=== PATIENT | male | born 1955 | race Caucasian/White ===

== ENCOUNTER 2016-09-11 05:08 | Day surgery (SDC) | payer BC ==
[2016-08-31 14:56] VITALS: BMI 28.0
--- NOTE | 2016-08-31 15:19 | PAT Medication Instructions ---
Service Date Aug 31, 2016. Current Home Medication List Aspirin (Aspirin Chewable), 81 MG PO QPM Atorvastatin (Lipitor), 20 MG PO HS Fish Oil ([place]-3), 2 CAP PO BID Glyburide (Diabeta), 2.5 MG PO HS Glyburide (Micronase), 5 MG PO QAM Metformin Hcl (Glucophage), 1,000 MG PO BID Multivitamin (Multivitamin), 1 TAB PO QAM Medication Instructions For Your Scheduled Surgery - Hold the following as of 09/01/16: Fish Oil ([place]-3), 2 CAP PO BID - Hold the following medications 10 days prior to surgery per surgeon's instructions: Aspirin (Aspirin Chewable), 81 MG PO QPM - Hold the following medications 48 hours prior to surgery: Metformin Hcl (Glucophage), 1,000 MG PO BID - Hold the following medications the morning of surgery: Glyburide (Micronase), 5 MG PO QAM Multivitamin (Multivitamin), 1 TAB PO QAM - Take the following medications as scheduled the night before surgery: Glyburide (Diabeta), 2.5 MG PO HS Atorvastatin (Lipitor), 20 MG PO HS Nothing to eat or drink after midnight If you have any questions please call us at [phone] or [phone] or [phone]
--- NOTE | 2016-08-31 15:46 | DIAGNOSTIC IMAGING REPORT ---
CHEST PREADMISSION(PA/LAT) CLINICAL HISTORY: Preoperative evaluation. COMPARISON STUDY: Chest radiograph May 21, 2007. FINDINGS: Lung volumes are normal. There is no consolidation to suggest pneumonia. Pulmonary vascularity is normal. Cardiac size is normal. Mediastinal contours are normal. There is no change in appearance of the chest. No pneumothorax or pleural effusion is identified. IMPRESSION: No acute cardiopulmonary findings. Electronically signed by: Boris London M.D. 08/31/2016 3:45 PM Dictated Date/Time: 08/31/2016 3:44 PM
[2016-08-31 16:23] LABS: BASO % 0.7 %; BASO ABS # 0.05 K/uL (0-0.2); COMPLETE YES; EOS % 7.2 %; HEMATOCRIT 43.4 % (42-52); IG% 0.7 %; LYMPH % 28.5 %; LYMPH ABS # 1.95 K/uL (1.2-3.4); MEAN CELL VOLUME 87.7 fL (80-100); MEAN CORPUSCULAR HEMOGLOBIN 30.9 pg (25-34); MEAN CORPUSCULAR HGB CONC 35.3 g/dl (32-36); MEAN PLATELET VOLUME 10.9 fL (7.4-10.4); MONO % 8.9 %; PLATELET COUNT 176 K/uL (130-400); RED BLOOD COUNT 4.95 M/uL (4.7-6.1); WHITE BLOOD COUNT 6.85 K/uL (4.8-10.8)
[2016-08-31 16:26] LABS: URINE APPEARANCE CLEAR (CLEAR); URINE BILIRUBIN NEG (NEG); URINE COLOR YELLOW; URINE NITRITE NEG (NEG); URINE PH 7.5 (4.5-7.5); URINE SPECIFIC GRAVITY 1.015 (1.000-1.030); UROBILINOGEN NEG (NEG)
[2016-08-31 16:31] LABS: MANUAL MICROSCOPIC REQUIRED? NO; REVIEW REQ? NO
[2016-08-31 16:37] LABS: BUN/CREATININE RATIO 16.3 (10-20); CALCIUM 9.3 mg/dl (8.5-10.1); CREATININE 1.1 mg/dl (0.60-1.40); POTASSIUM 4.2 mmol/L (3.5-5.1)
[~2016-09-11] VITALS: Ht 172.7 cm; Wt 85.1 kg
[~2016-09-11 05:08] MED LIST: ASPCH81X PO; ATOR-22 PO; GLYB2.5T7 PO; GLYB5TAB8 PO; METF1000 PO; MULT-506 PO; OMEG10007 PO
[2016-09-11 05:30] VITALS: BP 132/81; PULSE 70; TEMP 36.5; O2SAT 98; Ht 172.7 cm; Wt 85.1 kg
[2016-09-11] MEDS ORDERED: CIPROFLOXACIN / D5W 400 MG IV SCH (06:00)
[2016-09-11] MEDS ORDERED: LACTATED RINGER'S 1000ML 1,000 ML IV SCH (06:00)
--- NOTE | 2016-09-11 06:56 | History & Physical Bridge Note ---
H&P Re-Evaluation Bridge Note: I have examined the patient, reviewed the History & Physical and in the interval since the performance of the History & Physical I have noted the following changes of clinical significance: No changes noted
[2016-09-11] MEDS ORDERED: FENTANYL CITRATE INJ 50 MCG/1 ML 2 ML VIAL ONE ×2 (07:28→07:42)
[2016-09-11] MEDS ORDERED: DEXAMETHASONE SOD INJ 4 MG/ML VIAL ONE (07:35)
[2016-09-11] MEDS ORDERED: ONDANSETRON INJ 2 MG/ML 2 ML VIAL ONE (07:35)
[2016-09-11] MEDS ORDERED: PHENYLEPHRINE 100MCG/ML 5ML SYR ONE (07:35)
[2016-09-11] MEDS ORDERED: PROPOFOL IV EMULSION 10 MG/ML 20 ML VIAL IV ONE (07:35)
[2016-09-11] MEDS ORDERED: LIDOCAINE HCL 2% 2 ML VIAL (20MG/ML) ONE (07:35)
[2016-09-11] MEDS ORDERED: MIDAZOLAM HCL 1 MG/ML 2ML VIAL ONE (07:41)
[2016-09-11] MEDS ORDERED: BUPIVACAINE 0.5 % 5 MG/1 ML MPF 30ML VIAL ONE (07:43)
--- NOTE | 2016-09-11 08:12 | [facility] Post Operative Brief Note ---
Immediate Operative Summary Operative Date Sep 11, 2016. Pre-Operative Diagnosis Right Hydrocele Post-Operative Diagnosis Right Hydrocele Procedure(s) Performed Right Hydrocelectomy Surgeon Dr. Evan Beckwith Terrazzo Mechanic Surgeon(s) None Estimated Blood Loss 5ml Findings large right hydrocele Specimens None per surgeon Dr. vEan Beckwith Drains adolph Anesthesia gen Complication(s) None Disposition Recovery Room / PACU
[2016-09-11] MEDS ORDERED: CIPR1TAB10 PO (08:13)
[2016-09-11] MEDS ORDERED: OXYC-57 PO (08:13)
[2016-09-11] MEDS ORDERED: ONDANSETRON INJ 2 MG/ML 2 ML VIAL IV PRN (08:15)
[2016-09-11] MEDS ORDERED: ATROPINE SULFATE 0.1 MG/ML 5ML SYR IV PRN (08:15)
[2016-09-11] MEDS ORDERED: MEPERIDINE HCL 25 MG/ML CARP IV PRN (08:15)
[2016-09-11] MEDS ORDERED: FENTANYL CITRATE INJ 50 MCG/1 ML 2 ML VIAL IV PRN (08:15)
[2016-09-11] MEDS ORDERED: HYDROmorphone INJ 1 MG/ML SYR IV PRN (08:15)
[2016-09-11] MEDS ORDERED: EpHEDrine SULFATE INJ 50 MG/ML AMP IV PRN (08:15)
[2016-09-11] MEDS ORDERED: LABETALOL HCL IV 5 MG/ML 20ML IV PRN (08:15)
--- NOTE | 2016-09-11 08:15 | Discharge Instructions ---
Discharge Instructions Date of Service Sep 11, 2016. Visit Reason for Visit: Right Spermatocele/Hydrocele Discharge Discharge Diagnosis / Problem: right hydrocele Discharge Goals Goal(s): Therapeutic intervention Activity Recommendations Activity Limitations: per Instructions/Follow-up section Lifting Limitations: no more than 10 pounds Exercise/Sports Limitations: none May Resume Sexual Activity: after two weeks Shower/Bathe: tomorrow Anesthesia . Post Anesthesia Instructions: If you have had General Anesthesia or IV Sedation: * Do not drive today. * Resume driving when surgeon permits. * Do not make important decisions or sign legal documents today. * Call surgeon for: 1. Temperature elevations greater than 101 degrees F. 2. Uncontrollable pain. 3. Excessive bleeding. 4. Persistent nausea and vomiting. 5. Medication intolerance (nausea, vomiting or rash). * For nausea and vomiting use only clear liquids such as: tea, soda, bouillon until nausea subsides, then gradually increase diet as tolerated. * If you have any concerns or questions, call your surgeon's office. If physician is unavailable and it is an emergency, call 911 or go to the nearest emergency room. . Diet Recommendations Recommended Home Diet: resume previous diet Procedures Procedures Performed: Right Hydrocelectomy Pending Studies Studies pending at discharge: no Medical Emergencies . Who to Call and When: Medical Emergencies: If at any time you feel your situation is an emergency, please call 911 immediately. . Non-Emergent Contact Non-Emergency issues call your: Urologist Call Non-Emergent contact if: temperature is above 101.5 . . "Provider Documentation" section prepared by Evan Beckwith. . [place] Drug Monitoring Program Search Results: patient reviewed within database
[2016-09-11 09:05] VITALS: BP 113/74; PULSE 64; TEMP 36.5; O2SAT 96
[2016-09-11] MEDS: OXYCODONE/ACETAMINOPHEN 5-325 TAB PO PRN ×2 (09:29→10:01)
[2016-09-11 09:31] VITALS: BP 113/75; PULSE 74; O2SAT 98
[2016-09-11 10:01] VITALS: BP 108/75; PULSE 66; O2SAT 97
--- NOTE | 2016-09-11 10:01 | Anesthesiology Progress Note ---
Anesthesia Post Op Note Date & Time Sep 11, 2016 at 10:01 Vital Signs Pain Intensity: 6.0 Vital Signs Past 12 Hours Date Time Temp Pulse Resp B/P (MAP) Pulse Ox O2 Delivery O2 Flow Rate FiO2 09/11/16 09:31 74 18 113/75 98 Room Air 09/11/16 09:05 36.5 64 18 113/74 96 Room Air 09/11/16 08:50 36.6 66 18 122/80 95 Room Air 09/11/16 08:40 67 18 109/80 96 Room Air 09/11/16 08:30 70 18 111/81 100 Oxymask 10 09/11/16 08:20 36.3 75 14 121/84 100 Oxymask 10 09/11/16 08:11 36.3 75 14 110/73 99 Oxymask 10 09/11/16 05:30 36.5 70 18 132/81 (98) 98 Room Air Notes Mental Status: alert / awake / arousable, participated in evaluation Pt Amnestic to Procedure: Yes Nausea / Vomiting: adequately controlled Pain: adequately controlled Airway Patency, RR, SpO2: stable & adequate BP & HR: stable & adequate Hydration State: stable & adequate Anesthetic Complications: no major complications apparent
[2016-09-11 10:31] VITALS: BP 115/73; PULSE 49; TEMP 36.6; O2SAT 98
--- NOTE | 2016-09-11 13:21 | OPERATIVE REPORT ---
DATE OF OPERATION: 09/11/2016 PREOPERATIVE DIAGNOSIS: Right hydrocele. POSTOPERATIVE DIAGNOSIS: Same. PROCEDURE: Right hydrocelectomy. FINDINGS: The patient had a large right hydrocele. SURGEON: Dr. Evan Beckwith. ANESTHESIA: General. DRAINS: Quarter inch Horacio drain, right hemiscrotum. COMPLICATIONS: None. SPECIMENS: None. INDICATIONS: The patient is a 61-year-old white male who was seen in the office with a large right scrotal swelling, which was confirmed to be a hydrocele. It was bothersome enough that he wanted to repair. DESCRIPTION OF PROCEDURE: After the induction of an adequate general anesthetic and appropriate time-out, the patient's lower abdomen, scrotum and genitalia were scrubbed with Betadine scrub, prepped with Betadine paint and draped in a sterile fashion. Transverse incision was made in the right hemiscrotum being carried down through skin and subcutaneous tissues, the dartos layers down to the tunica vaginalis, which was then dissected free from the surrounding scrotal wall and then the entire hydrocele sac was extruded from the wound. A small puncture wound was made on the anterior surface. About 800 mL of fluid, straw colored drained from the hydrocele itself. The sac was then widely opened. Part of it was trimmed away. Any bleeding points were electrocoagulated. The sac was then folded behind the testicle and the cord lightly sutured in place with 2-0 Vicryl. The wound was then irrigated with sterile saline. Any bleeding points were electrocoagulated. A quarter-inch Horacio drain was placed in the right hemiscrotum, brought out through a separate stab wound and sutured to the skin with a 2-0 nylon. The testicle was then placed in its correct anatomic position in the right hemiscrotum. The incision was then closed in 2 layers. The dartos layer was closed with a running locked 2-0 Vicryl. Skin was closed with interrupted mattress of 3-0 Vicryl. The wound was then washed and dried. Xeroform gauze was applied. The incision was prior to this was infiltrated with 0.25% Marcaine for local anesthesia. Fluff gauze and a dry scrotal support were applied. All needle, sponge and instrument counts were correct at the end of the case. The patient tolerated the procedure well and went to the recovery room in stable condition. I attest to the content of the Intraoperative Record and any orders documented therein. Any exception s are noted below.
== END 2016-09-11 10:45 | disposition home or self-care (01) ==
LOC: C.ACU 05:08
PROVIDERS: ATTEND Urology
DX: N43.3 Hydrocele, unspecified (principal); E11.65 Type 2 diabetes mellitus with hyperglycemia; N40.0 Benign prostatic hyperplasia without lower urinary tract symptoms; E80.4 Gilbert syndrome; E78.00 Pure hypercholesterolemia, unspecified; Z79.82 Long term (current) use of aspirin; Z79.84 Long term (current) use of oral hypoglycemic drugs; Z79.899 Other long term (current) drug therapy

== ENCOUNTER 2017-03-13 18:56 | Emergency (ER) | payer BC, OTHER ==
[~2017-03-13] VITALS: Ht 172.7 cm; Wt 83.7 kg
[~2017-03-13 18:56] MED LIST changes: +CIPR1TAB10 PO; +OXYC-57 PO
[2017-03-13 19:03] VITALS: TEMP 36.7; Ht 172.7 cm; Wt 83.7 kg
[2017-03-13] MEDS ORDERED: SODIUM CHLORIDE 0.9% 1000ML 1,000 ML IV STA (19:40)
[2017-03-13] MEDS ORDERED: KETOROLAC TROMETHAMINE 30 MG/ML VIAL IV STA (19:40)
[2017-03-13] MEDS ORDERED: MoRPHine SULFATE 10 MG/ML CARP/VIAL IV STA (19:40)
[2017-03-13] MEDS ORDERED: ONDANSETRON INJ 2 MG/ML 2 ML VIAL IV STA (19:40)
[2017-03-13] MEDS ORDERED: TAMSULOSIN HCL 0.4 MG CAP PO ONE (19:45)
[2017-03-13 20:02] LABS: BASO % 0.1 %; BASO ABS # 0.01 K/uL (0-0.2); EOS % 0.2 %; EOS ABS # 0.03 K/uL (0-0.5); HEMATOCRIT 42.7 % (42-52); HEMOGLOBIN 15.8 g/dL (14.0-18.0); IG# 0.04 K/uL (0.00-0.02); LYMPH % 7.5 %; LYMPH ABS # 0.97 K/uL (1.2-3.4); MEAN CELL VOLUME 87.3 fL (80-100); MEAN CORPUSCULAR HEMOGLOBIN 32.3 pg (25-34); MEAN PLATELET VOLUME 10.5 fL (7.4-10.4); MONO % 5.4 %; MONO ABS # 0.69 K/uL (0.11-0.59); NEUT % 86.5 %; NEUT ABS # 11.14 K/uL (1.4-6.5); PLATELET COUNT 192 K/uL (130-400); RED CELL DISTRIBUTION WIDTH CV 12.6 % (11.5-14.5); RED CELL DISTRIBUTION WIDTH SD 40.4 fL (36.4-46.3); WHITE BLOOD COUNT 12.88 K/uL (4.8-10.8)
[2017-03-13 20:19] LABS: ALBUMIN 4.2 gm/dl (3.4-5.0); CALCIUM 9.7 mg/dl (8.5-10.1); CREATININE 1.24 mg/dl (0.60-1.40); POTASSIUM 3.9 mmol/L (3.5-5.1)
[2017-03-13 20:22] LABS: TOTAL PROTEIN 7.7 gm/dl (6.4-8.2)
[2017-03-13] MEDS ORDERED: MCR5 PO ×2 (20:28)
[2017-03-13] MEDS ORDERED: ASPI81TA28 PO (20:28)
--- NOTE | 2017-03-13 20:42 | DIAGNOSTIC IMAGING REPORT ---
CT OF THE ABDOMEN AND PELVIS WITHOUT CONTRAST, STONE PROTOCOL CLINICAL HISTORY: Left flank pain. COMPARISON STUDY: CT of the abdomen and pelvis November 03, 2011. TECHNIQUE: Helical axial images of the abdomen and pelvis were obtained without IV or oral contrast according to renal stone protocol. A dose lowering technique was utilized adhering to the principles of ALARA. FINDINGS: A 4 mm left ureterovesical junction calculus results in moderate left hydronephrosis with extensive perinephric infiltration. A few punctate calculi within the lower pole of the right kidney are noted. There are no right ureteral calculi. There are gallstones within the gallbladder without evidence for acute cholecystitis. Several bladder diverticula are noted. A 1.2 cm suspected right hepatic lobe cyst is unchanged since exam of November 03, 2011. Evaluation of the abdomen and pelvis is suboptimal on this unenhanced exam. Unenhanced images of the spleen, adrenal glands and pancreas are unremarkable. There is no biliary or pancreatic ductal dilatation. No suspicious osseous lesions are present. IMPRESSION: 1. 4 mm left ureterovesical junction calculus which results in moderate left hydroureteronephrosis with extensive perinephric infiltration. 2. Punctate right renal calculi. 3. Cholelithiasis. Electronically signed by: Boris London M.D. 03/13/2017 8:41 PM Dictated Date/Time: 03/13/2017 8:36 PM
[2017-03-13] MEDS ORDERED: ONDA4TAB10 SL (20:58)
[2017-03-13] MEDS ORDERED: OXYC1TAB3 PO (20:58)
[2017-03-13] MEDS ORDERED: TAMS0.4C38 PO (20:58)
[2017-03-13] MEDS ORDERED: ONDANSETRON HOME PACK 4MG OD TAB PO ONE (21:00)
[2017-03-13] MEDS ORDERED: OXYCODONE IR HOME PACK PO ONE (21:00)
--- NOTE | 2017-03-13 21:00 | EMERGENCY ROOM VISIT NOTE ---
History First contact with patient: 19:33 Chief Complaint: FLANK PAIN Stated Complaint: BACK AND LEFT SIDE ABDOMINAL PAIN History of Present Illness The patient is a 62 year old male who presents to the Emergency Room with complaints of left flank pain which started at 1:00 this afternoon. He states the pain started in his back and now radiates around to his abdomen. The patient admits to associated nausea but denies any vomiting. The patient denies any urinary symptoms of frequency, urgency, dysuria or hematuria. The patient denies any change in bowel habits. The patient denies any injury to his back. The patient does admit to having a kidney stone in 2011 which he passed on his own. He did not see a urologist at that time. Review of Systems 10 system review was performed and was negative unless stated otherwise history of present illness. Past Medical/Surgical History Kidney stone, diabetes, hyperlipidemia Social History Smoking Status: Never Smoker Alcohol Use: none Marital Status: Occupation Status: employed Current/Historical Medications Scheduled Aspirin (Aspirin Ec), 81 MG PO DAILY Atorvastatin (Lipitor), 20 MG PO HS Fish Oil ([place]-3), 2 CAP PO BID Glyburide (Glyburide), 2.5 MG PO HS Glyburide (Glyburide), 5 MG PO QAM Metformin Hcl (Glucophage), 1,000 MG PO BID Multivitamin (Multivitamin), 1 TAB PO QAM Physical Exam Vital Signs Date Time Temp Pulse Resp B/P (MAP) Pulse Ox O2 Delivery O2 Flow Rate FiO2 03/13/17 20:36 84 18 120/72 95 Room Air 03/13/17 19:03 36.7 78 18 170/98 99 Room Air Physical Exam GENERAL: 62-year-old white male appears uncomfortable secondary to pain. MENTAL Status: Alert and oriented 3. MOUTH: Mucosa is moist NECK: Supple, no lymphadenopathy noted. No carotid bruits noted. LUNGS: Clear auscultation without wheezes rales or rhonchi. CARDIAC: Regular rate and rhythm without murmur. Pulses is full and equal throughout. BACK: Left CVA tenderness noted. ABDOMEN: Positive bowel sounds all 4 quadrants. Soft, tenderness palpation in the left flank region otherwise nontender to palpation without organomegaly or masses. EXTREMITIES: No cyanosis or edema noted. Medical Decision & Procedures ER Provider Diagnostic Interpretation: Patient Name: ANITA PULLIAM Unit Number: [id number] Dictated: 03/13/172035 Transcribed: 03/13/172035 JA Printed Date/Time: [~ rep prt dt]/[~ rep prt tm] [~ rep ct labl] - [~ rep ct ivnm] [facility] [place] [address] Dictated: 03/13/172035 Transcribed: 03/13/172035 JA Printed Date/Time: [~ rep prt dt]/[~ rep prt tm] [~ rep ct labl] - [~ rep ct ivnm] CT OF THE ABDOMEN AND PELVIS WITHOUT CONTRAST, STONE PROTOCOL CLINICAL HISTORY: Left flank pain. COMPARISON STUDY: CT of the abdomen and pelvis November 03, 2011. TECHNIQUE: Helical axial images of the abdomen and pelvis were obtained without IV or oral contrast according to renal stone protocol. A dose lowering technique was utilized adhering to the principles of ALARA. FINDINGS: A 4 mm left ureterovesical junction calculus results in moderate left hydronephrosis with extensive perinephric infiltration. A few punctate calculi within the lower pole of the right kidney are noted. There are no right ureteral calculi. There are gallstones within the gallbladder without evidence for acute cholecystitis. Several bladder diverticula are noted. A 1.2 cm suspected right hepatic lobe cyst is unchanged since exam of November 03, 2011. Evaluation of the abdomen and pelvis is suboptimal on this unenhanced exam. Unenhanced images of the spleen, adrenal glands and pancreas are unremarkable. There is no biliary or pancreatic ductal dilatation. No suspicious osseous lesions are present. IMPRESSION: 1. 4 mm left ureterovesical junction calculus which results in moderate left hydroureteronephrosis with extensive perinephric infiltration. 2. Punctate right renal calculi. 3. Cholelithiasis. Electronically signed by: Boris London M.D. 03/13/2017 8:41 PM Dictated Date/Time: 03/13/2017 8:36 PM The status of this report is Signed. Draft = Not yet reviewed or approved by Radiologist. Signed = Reviewed and approved by Radiologist. <AttendingPhy></AttendingPhy> <FamilyPhy>Oliver Zaldivar M.D.</FamilyPhy> < PrimaryPhy>Oliver Zaldivar M.D.</PrimaryPhy> <UnitNumber>[id number]</UnitNumber > <VisitNumber>[id number]</VisitNumber> <PatientName>ANITA PULLIAM</ PatientName> <DateOfBirth>1955</DateOfBirth> <Location>[facility]</Location> < ServiceDate>03/13/17</ServiceDate> <MNE>ESINDI</MNE> <OrderingPhy>Katty Thorpe PA-C</OrderingPhy> <OrderingPhyMNE>f rep ord dr dos santos</OrderingPhyMNE> < DictatingPhyMNE>f rep dict dr dos santos</DictatingPhyMNE> <CCListMNE>f rep ct mne</ CCListMNE> <AdmittingPhyMNE>f pt admit dr dos santos</AdmittingPhyMNE> <AttendingPhyMNE >f pt attend dr dos santos</AttendingPhyMNE> <ConsultingPhyMNE>f pt consult dr dos santos</ConsultingPhyMNE> <FamilyPhyMNE>f pt fam dr dos santos</FamilyPhyMNE> <OtherPhyMNE>f pt other dr dos santos</OtherPhyMNE> < PrimaryPhyMNE>f pt prim care dr dos santos</PrimaryPhyMNE> <ReferringPhyMNE>f pt referring dr dos santos</ReferringPhyMNE> Laboratory Results 03/13/17 19:44 Red Blood Count 4.89, Mean Corpuscular Volume 87.3, Mean Corpuscular Hemoglobin 32.3, Mean Corpuscular Hemoglobin Concent 37.0, Mean Platelet Volume 10.5, Neutrophils (%) (Auto) 86.5, Lymphocytes (%) (Auto) 7.5, Monocytes (%) (Auto) 5.4, Eosinophils (%) (Auto) 0.2, Basophils (%) (Auto) 0.1, Neutrophils # (Auto) 11.14, Lymphocytes # (Auto) 0.97, Monocytes # (Auto) 0.69, Eosinophils # (Auto) 0.03, Basophils # (Auto) 0.01 03/13/17 19:44 Test 03/13/17 19:44 03/13/17 20:45 White Blood Count 12.88 K/uL (4.8-10.8) Red Blood Count 4.89 M/uL (4.7-6.1) Hemoglobin 15.8 g/dL (14.0-18.0) Hematocrit 42.7 % (42-52) Mean Corpuscular Volume 87.3 fL (80-100) Mean Corpuscular Hemoglobin 32.3 pg (25-34) Mean Corpuscular Hemoglobin Concent 37.0 g/dl (32-36) Platelet Count 192 K/uL (130-400) Mean Platelet Volume 10.5 fL (7.4-10.4) Neutrophils (%) (Auto) 86.5 % Lymphocytes (%) (Auto) 7.5 % Monocytes (%) (Auto) 5.4 % Eosinophils (%) (Auto) 0.2 % Basophils (%) (Auto) 0.1 % Neutrophils # (Auto) 11.14 K/uL (1.4-6.5) Lymphocytes # (Auto) 0.97 K/uL (1.2-3.4) Monocytes # (Auto) 0.69 K/uL (0.11-0.59) Eosinophils # (Auto) 0.03 K/uL (0-0.5) Basophils # (Auto) 0.01 K/uL (0-0.2) RDW Standard Deviation 40.4 fL (36.4-46.3) RDW Coefficient of Variation 12.6 % (11.5-14.5) Immature Granulocyte % (Auto) 0.3 % Immature Granulocyte # (Auto) 0.04 K/uL (0.00-0.02) Anion Gap 7.0 mmol/L (3-11) Est Creatinine Clear Calc Drug Dose 65.1 ml/min Estimated GFR () 71.8 Estimated GFR (Non- 61.9 BUN/Creatinine Ratio 14.7 (10-20) Calcium Level 9.7 mg/dl (8.5-10.1) Total Bilirubin 1.2 mg/dl (0.2-1) Direct Bilirubin 0.3 mg/dl (0-0.2) Aspartate Amino Transf (AST/SGOT) 24 U/L (15-37) Alanine Aminotransferase (ALT/SGPT) 34 U/L (12-78) Alkaline Phosphatase 67 U/L (45-117) Total Protein 7.7 gm/dl (6.4-8.2) Albumin 4.2 gm/dl (3.4-5.0) Lipase 104 U/L (73-393) Medications Administered Medications (Trade) Dose Ordered Sig/Tanisha Route Start Time Stop Time Status Last Admin Dose Admin Sodium Chloride 1,000 ml @ 999 mls/hr Q1H1M STAT IV 03/13/17 19:40 03/13/17 20:40 DC 03/13/17 19:52 999 MLS/HR Ketorolac Tromethamine (Toradol Inj) 30 mg NOW STAT IV 03/13/17 19:40 03/13/17 19:42 DC 03/13/17 19:52 30 MG Morphine Sulfate (MoRPHine SULFATE INJ) 6 mg NOW STAT IV 03/13/17 19:40 03/13/17 19:42 DC 03/13/17 19:51 6 MG Ondansetron HCl (Zofran Inj) 4 mg NOW STAT IV 03/13/17 19:40 03/13/17 19:42 DC 03/13/17 19:52 4 MG Tamsulosin HCl (Flomax Cap) 0.4 mg NOW ONCE PO 03/13/17 19:45 03/13/17 19:46 DC 03/13/17 19:52 0.4 MG ED Course The patient was evaluated. The patient's EMR medication list were reviewed. IV access was obtained. The patient was given 1 L normal saline wide-open. He was given morphine 6 mg IV, Toradol 30 mg IV, Zofran 4 mg IV and Flomax 0.4 mg by mouth. CBC and differential, renal profile, LFTs and lipase levels were ordered. Urinalysis was ordered. CT stone study was ordered and interpreted by the radiologist as above with a 4 mm calculus at the left UV junction with moderate hydronephrosis. Labs are reviewed. The patient's white count was elevated at 12.8 and his glucose was elevated at 180. The patient is a diabetic. The patient was reevaluated was feeling much better. He was informed of all findings. The patient was finally able to give a urine sample. Urine dip revealed a trace of protein and trace of ketones but no evidence of bacteria. Urine will be sent for urinalysis and culture. The patient was given a Zofran home pack and an OxyIR home pack. The patient was discharged home in stable condition. Medical Decision Differential diagnoses include reflux, gastritis, gastroenteritis, pancreatitis , cholelithiasis, cholecystitis, appendicitis, mesenteric ischemia, pyelonephritis, urinary tract infection, renal colic, diverticulitis, shingles, bowel obstruction, intussusception, hernia, Due to the patient's history and my suspicions were for ureteral calculi. [place] Drug Monitoring Program Search Results: patient reviewed within database Medication Reconcilliation Current Medication List: was personally reviewed by me Blood Pressure Screening Patient's blood pressure: Elevated blood pressure Blood pressure disposition: Elevated BP felt to be situational Impression Primary Impression: Ureteral stone with hydronephrosis Departure Information Dispostion Home / Self-Care Condition GOOD Prescriptions Oxycodone Immediate Rel Tab (ROXICODONE IR) 5 Mg Tab 1-2 TAB PO Q4H Y for Pain, #24 TAB Prov: Katty Thorep PA-C 03/13/17 Tamsulosin Hcl (FLOMAX) 0.4 Mg Cap 0.4 MG PO DAILY for 7 Days, #7 CAP Prov: Katty Thorpe PA-C 03/13/17 Ondasetron Odt (ZOFRAN ODT) 4 Mg Tab 4 MG SL Q6H for Nausea, #10 TAB Prov: Katty Thorpe PA-C 03/13/17 Referrals Oliver Zaldivar M.D. (PCP) Naheed Dobbins MD Forms HOME CARE DOCUMENTATION FORM, IMPORTANT VISIT INFORMATION Patient Instructions Kidney Stones - [facility], My [facility] Additional Instructions Push fluids. Strain all urine Ibuprofen 600 mg every 6 hours with food for pain. Take OxyIR as needed for more severe pain. Do not drive while taking the OxyIR. Take Flomax daily as directed. Take Zofran as needed for nausea. If you experience any high fevers, uncontrolled nausea vomiting, uncontrolled abdominal pain return to ER immediately. If you do not pass a stone in 5 days, call Dr. Dobbins for an appointment.
[2017-03-13 21:05] VITALS: BP 120/72; PULSE 81; O2SAT 97
== END 2017-03-13 21:08 | disposition home or self-care (01) ==
LOC: C.EDB 18:58
DX: N20.0 Calculus of kidney (principal); N13.30 Unspecified hydronephrosis; Z87.442 Personal history of urinary calculi; E11.9 Type 2 diabetes mellitus without complications; E78.5 Hyperlipidemia, unspecified; Z79.82 Long term (current) use of aspirin; Z79.899 Other long term (current) drug therapy